=== PATIENT | male | born 1965 | race Caucasian/White ===

== ENCOUNTER → 2024-07-09 06:21 | Day surgery (SDC) | payer OTHER, SELFPAY ==
[2024-07-09 12:09] LABS: Glucose - Point of Care 107 mg/dl (70-99)
== END ==
LOC: GI 06:21
PROVIDERS: ATTENDING PHYSICIAN Internal Medicine Gastroenterology
DX: Z12.11 Encounter for screening for malignant neoplasm of colon (principal); Z86.0100 Personal history of colon polyps, unspecified; K64.8 Other hemorrhoids; D12.2 Benign neoplasm of ascending colon; D12.3 Benign neoplasm of transverse colon; K63.5 Polyp of colon
CPT/HCPCS: 45385; 88305; 82962

== ENCOUNTER 2024-10-21 09:19 | Emergency (ER) | payer SELFPAY ==
[2024-10-21 09:37] VITALS: BP 125/85
--- NOTE | 2024-10-21 09:39 | ED.GENMED ---
ED Provider Triage
<Sarbjit Parish PA-C - Last Filed: 10/21/24 09:39>
-
Patient seen by provider in Triage?: Seen in Triage
Attestation: A medical screening examination has been initiated by a qualified medical provider. Based on the assessment performed at this time, it has been determined that an emergent medical condition may exist and the patient has been informed
that further medical evaluation and possible additional diagnostic testing may be needed.
HPI: 59-year-old male presents for evaluation of left knee pain for the past several days. Denies acute injury. Prior history of surgery, details of which she is not certain. States that he was having difficulty walking on the knee however it is
better today.
GENERAL: Alert , in no apparent distress
EYE: No visual abnormalities.
NECK: Trachea midline
ENT: No visible abnormalities.
LUNGS: No acute respiratory distress
NEUROLOGICAL: Alert and oriented
SKIN: Skin intact. No visible changes.
MUSCULOSKELETAL: Moving extremities normally. Left knee range of motion intact, no joint effusion
PSYCH: Normal and appropriate interaction.
This is a medical evaluation conducted in person to initiate diagnostic evaluation and provide initial therapeutics. Please see further documentation by the treating clinician.
History of Present Illness
<Sarbjit Parish PA-C - Last Filed: 10/21/24 09:39>
General
Chief Complaint: Musculo-Skeletal Complaint
Time Seen by Provider: 10/21/24 10:24
<Roosevelt Sánchez DO - Last Filed: 10/21/24 11:13>
General
Source: patient
Exam Limitations: none
Nursing documentation reviewed up to this point in time: agreed with
History of Present Illness
History of Present Illness:
59-year-old male presents emergency department due to left knee pain that began when he was getting out of a car at work. He has a history of knee pain in the past and had meniscal surgery about 12 years ago. He cannot recall the name of the
surgeon. 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
Past History
<Sarbjit Parish PA-C - Last Filed: 10/21/24 09:39>
Past History
ED Past Medical History: HTN, Hypercholesterolemia and Other (TIA)
ED Past Surgical History: Orthopedic (Right hip repaired age 15)
Social History
Tobacco: Non-smoker
Alcohol: None
Drug: None
Living: with family
Employment: Employed
Review of Systems
<Roosevelt Sánchez, - Last Filed: 10/21/24 11:13>
Review of Systems
Allergies reviewed?: Yes
All Other Systems: Not applicable
Constitutional: Reports no symptoms
EENT: Reports no symptoms
Respiratory: Reports no symptoms
Cardiac: Reports no symptoms
ABD/GI: Reports no symptoms
: Reports no symptoms
Musculoskeletal: Reports joint pain
Skin: Reports no symptoms
Neurological: Reports no symptoms
Endocrine: Reports no symptoms
Hematologic/Lymphatic: Reports no symptoms
Psychiatric: Reports no symptoms
Phy Exam
<Roosevelt Sánchez, - Last Filed: 10/21/24 11:13>
Physical Exam
Physical Exam:
No acute distress
Physical Exam
General: no apparent distress, not acutely ill
Neck: supple. no meningeal signs. normal posterior pharynx
Heart: equal radial pulses.
HEENT: Pupils equal round reactive to light, EOMI
Lungs: no acute respiratory distress. clear bilaterally
Abdomen: Nondistended
Neuro: alert and oriented. no focal neurological deficits cranial nerves II through XII intact
Skin: no rash
Psychiatric: well kept. interactive and cooperative
Extremities: no edema. no calf tenderness. negative homans. good distal pulses mild tenderness to palpation left lateral knee. Full range of motion. Ambulates without difficulty.
Course
<Sarbjit Parish PA-C - Last Filed: 10/21/24 09:39>
Orders/Labs/Results
Orders:
Orders
10/21/24 09:38
CR Knee - Left 4 Or More View* Urgent
Comment:
Reason For Exam: injury
Vital Signs
Initial and Last Documented VS:
Initial Vital Signs
Temp Pulse Resp BP Pulse Ox
98 F 76 16 125/85 97
10/21/24 09:37 10/21/24 09:37 10/21/24 09:37 10/21/24 09:37 10/21/24 09:37
Last Documented Vital Signs
Temp Pulse Resp BP Pulse Ox
98 F 76 16 125/85 97
10/21/24 09:37 10/21/24 09:37 10/21/24 09:37 10/21/24 09:37 10/21/24 09:37
<Roosevelt Sánchez DO - Last Filed: 10/21/24 11:13>
Orders/Labs/Results
Orders:
Orders
10/21/24 09:38
CR Knee - Left 4 Or More View* Urgent
Comment:
Reason For Exam: injury
Vital Signs
Initial and Last Documented VS:
Initial Vital Signs
Temp Pulse Resp BP Pulse Ox
98 F 76 16 125/85 97
10/21/24 09:37 10/21/24 09:37 10/21/24 09:37 10/21/24 09:37 10/21/24 09:37
Last Documented Vital Signs
Temp Pulse Resp BP Pulse Ox
98 F 76 16 125/85 97
10/21/24 09:37 10/21/24 09:37 10/21/24 09:37 10/21/24 09:37 10/21/24 09:37
<Roosevelt Sánchez DO - Last Filed: 10/21/24 11:13>
MDM/Problems Addressed
Differential Diagnosis Includes:
Knee fracture, DVT, tendinitis
MDM/Problems Addressed:
59-year-old male with left knee pain, suspect tendinitis, will have patient follow-up with orthopedics. Return precautions given. Patient ambulates without difficulty.
<Roosevelt Sánchez DO - Last Filed: 10/21/24 11:13>
*Radiology
Radiology exam reviewed: radiology read reviewed (Left knee x-ray no acute findings)
*Pulse Oximetry
Patient hypoxic: no
*Critical Care Note
Total Time (30-74mins, 75-104mins- exclusive of procedures): Not Applicable
<Roosevelt Sánchez DO - Last Filed: 10/21/24 11:13>
Patient Management
Social determinants of health affecting care: Living situation and Strong social support
Escalation/DeEscalation of care consider admission/obs:
Admit not indicated
ED Attending Note
<Sarbjit Parish PA-C - Last Filed: 10/21/24 09:39>
-
Portions of this chart may have been created with voice recognition software.� Occasional wrong word or��sound alike� substitutions may have occurred due to the inherent limitations of voice recognition software.
Discharge Plan
Departure
Patient Disposition: Home (Routine Discharge)
Date of Disposition: 10/21/24
Time of Disposition: 11:08
Patient with high blood pressure during this ER visit?: Yes
Condition: Good
Discharge Problem:
Acute pain of left knee
Instructions: Knee Pain (DC)
Prescriptions:
No Action
sertraline 25 MG tablet
50 mg PO HS
ibuprofen 200 MG tablet
400 mg PO PRN PRN (Reason: pain)
valsartan 40 MG tablet
40 mg PO HS
atorvastatin 20 MG tablet
20 mg PO HS
aspirin 81 MG tablet,delayed release (DR/EC)
81 mg PO DAILYPRN PRN (Reason: when he remembers)
sertraline 50 MG tablet
50 mg PO HS
Referrals:
Roosevelt Covington MD [Family Provider] -
Jeff Manzano MD [Active] - Call in 1-3 days for appt
Interventions
Interventions:
*Risk Screen - Suicide Last Done: 10/21/24 09:39
*Neglect/Abuse Screening Last Done: 10/21/24 09:39
Discharge Date and Time
Print Language: INDONESIAN
== END 2024-10-21 11:36 | disposition home or self-care (01) ==
LOC: EMR 09:19
PROVIDERS: EMERGENCY PHYSICIAN Emergency Medicine; FAMILY PHYSICIAN Family Medicine
DX: M25.562 Pain in left knee (principal); I10 Essential (primary) hypertension; E78.00 Pure hypercholesterolemia, unspecified; Z86.73 Personal history of transient ischemic attack (TIA), and cerebral infarction without residual deficits
CPT/HCPCS: 99283; 73564

== ENCOUNTER 2024-12-30 10:42 | Inpatient (IN) | payer OTHER, SELFPAY ==
[2024-12-28] VITALS (7 sets, daily range): BP systolic 101–155; BP diastolic 65–99
[2024-12-28 16:51] LABS: % Basophils 0.4 % (0-2); % Eosinophils 1.8 % (0-6); % Immature Granulocytes 0.2 % (0-0.5); % Lymphocytes 5.8 % (20.5-51.1); % Monocytes 0.4 % (1.7-9.3); % Neutrophils 91.4 % (42.2-75.2); Absolute Eosinophils 0.1 10^3/uL (0-0.7); Absolute Lymphocytes 0.3 10^3/uL (1.2-3.4); Absolute Neutrophils 4.1 10^3/uL (1.4-6.5); Hematocrit 45.4 % (39.0-52.0); Hemoglobin 15.8 g/dL (13.0-18.0); Mean Corp Hgb Conc. 34.8 g/dL (33.0-37.0); Mean Corpuscular Hgb 30.3 pg (27.0-31.0); Mean Platelet Volume 9.7 fL (7.4-10.4); Nucleated Red Blood Cells % 0 % (-); Platelet Count 163 10^3/uL (130-400); Red Blood Cell Count 5.22 10^6/uL (4.70-6.10); White Blood Cell Count 4.5 10^3/uL (4.8-10.8)
[2024-12-28 17:03] LABS: ALT (SGPT) 166 U/L (0-50); AST (SGOT) 202 U/L (17-59); Albumin 4.3 g/dl (3.5-5.0); Alkaline Phosphatase 60 U/L (38-126); Blood Urea Nitrogen 29 mg/dl (9-20); Calcium 9.6 mg/dl (8.4-10.2); Carbon Dioxide 28 mmol/L (22-30); Chloride 101 mmol/L (98-107); Glucose 185 mg/dl (70-99); Potassium 4.5 mmol/L (3.5-5.1); Sodium 137 mmol/L (135-145); Total Bilirubin 1.9 mg/dl (0.2-1.3); Total Protein 7.2 g/dl (6.3-8.2); eGFR > 60.00
[2024-12-28 17:11] LABS: Troponin I < 0.012 ng/ml
--- NOTE | 2024-12-28 17:11 | ED.GENMED ---
History of Present Illness
General
Chief Complaint: Back Pain
Source: patient
Time Seen by Provider: 12/28/24 16:59
History of Present Illness
History of Present Illness:
This a pleasant 59-year-old male who presents to the emergency department with back pain that radiated to his abdomen. He states that the pain began this morning after drinking coffee. He reports that the pain has been waxing and waning all day.
Shortly after the pain began it stopped. Patient went grocery shopping with his and states that he had no issues. Patient got home and had a return of symptoms. He states that he felt like he had bad gas. He vomited several times. was
concerned because she thought his lips looked blue. Patient started shivering and brought him to the emergency department. Upon arrival, patient states that his symptoms had resolved completely.
Vital signs are stable. Patient not hypoxic
Nursing note reviewed. I agree with nursing documentation up to this point in time.
Home Meds and allergies reviewed.
NUMBER AND COMPLEXITY OF PROBLEMS ADDRESSED AT THE ENCOUNTER
� Chronic conditions affecting care:Chronic back pain with herniated disks., Hypertension, former smoker, diabetic.
� Acute Exacerbation and/or Progression of Chronic Illness:Acute on chronic back pain
� Differential Diagnosis includes: Back pain, PE, dissection, musculoskeletal pain
AMOUNT AND/OR COMPLEXITY OF DATA TO BE REVIEWED AND ANALYZED
I performed an independent evaluation of the following and my interpretation is:
EKG:Sinus tachycardia rate of 101 inverted T waves anterior laterally. This is new when compared to previous EKG dated February 26, 2018.
Pulse Ox: Not Hypoxic 98% on room air. No cyanosis noted
Radio Aerial Installer: Sinus Tachycardia rate of 108
CT:
X-rays:
Ultrasound:
Laboratory Studies:
Other:
Review of other/old records:
Clinical information was obtained by an independent historian:
Prescriptions/Medications Considered but not given:
Further testing considered but not performed:
RISK OF COMPLICATIONS AND/OR MORBIDITY OR MORTALITY OF PATIENT MANAGEMENT
Social determinants of health affecting care: Good Social Support
Discussion with other providers:
Escalation of care including admission/observation vs risk of discharge considered: After being observed in the emergency department, patient is
CRITICAL CARE NOTE:
Total Time (exclusive of procedures):
Update:
Past History
Past History
ED Past Medical History: HTN, Hypercholesterolemia and Other (TIA)
ED Past Surgical History: Orthopedic (Right hip repaired age 15)
Social History
Tobacco: Non-smoker
Alcohol: None
Drug: None
Living: with family
Employment: Employed
Review of Systems
Review of Systems
Allergies reviewed?: Yes
Other source history: family ( is present at the bedside)
All Other Systems: ROS reviewed and negative except as documented in HPI and ROS
Constitutional: Reports no symptoms
EENT: Reports no symptoms
Respiratory: Reports no symptoms
Cardiac: Reports no symptoms
ABD/GI: Reports abdominal pain, nausea and vomiting; Denies diarrhea, constipated, bloody stools, black stools or anorexia
: Reports no symptoms
Musculoskeletal: Reports no symptoms
Skin: Reports no symptoms
Neurological: Reports no symptoms
Endocrine: Reports no symptoms
Hematologic/Lymphatic: Reports no symptoms
Psychiatric: Reports no symptoms
Phy Exam
General Physical Exam
General Presentation: well appearing and no apparent distress
General Skin: warm and dry
General Habitus: normal
General Mental: alert
General Hydration: appears well hydrated
ENT Exam
ENT Exam: EOMI, pharynx normal, neck supple and normocephalic
Eye Exam
Eye Exam: PERRL, cornea clear and conjunctiva normal
Cardiovascular Exam
Cardiovascular Exam: regular rate/rhythm, no edema, no murmur and normal peripheral pulses
Pulmonary Exam
Pulmonary Exam: lungs clear, no respiratory distress, no rales, no crackles, no rhonchi, no stridor, no wheezing and no cough
Gastrointestinal Exam
Gastrointestinal Exam: normal bowel sounds, non tender, soft, no organomegaly, no pulsatile mass and non distended
Neurological Exam
Neurological Exam: alert, oriented x3, no motor deficits and speech normal
Musculoskeletal Exam
Musculoskeletal Exam: full ROM and no edema
Skin Exam
Skin Exam: normal color, warm/dry, no rash and no petechia
Psychiatric Exam
Psychiatric Exam: normal mood/affect
Course
Orders/Labs/Results
Orders:
Orders
12/28/24 16:31
Electrocardiogram (*1) Urgent
Reason for Study: Abdominal Pain
EKG- Treatment ONCE
12/28/24 16:36
Complete Blood Count/With Diff Urgent
Comprehensive Metabolic Panel Urgent
Lipase Urgent
Troponin I Urgent
12/28/24 17:10
0.9% Sodium Chloride 1000 ml [Nss] 1,000 ml IV BOLUS
12/28/24 17:11
Add On- LAB Urgent
Tests Added?: ddimer
12/28/24 17:21
D-Dimer Urgent
12/28/24 17:40
CT Abd/pelvis W Iv Cont Urgent
Comment:
Reason For Exam: upper abd pain
12/28/24 21:17
US Abdomen Limited Urgent
Reason For Exam: upper abd pain
12/28/24 22:40
Electrocardiogram (*1) Urgent
Reason for Study: Abdominal Pain
EKG- Treatment ONCE
12/28/24 22:47
Comprehensive Metabolic Panel Urgent
Lipase Urgent
Comment: ADD ON
Troponin I Urgent
12/28/24 23:42
Add On- LAB Urgent
Tests Added?: lipase
Abnormal Lab Results
12/28/24 12/28/24
16:36 22:47
WBC 4.5 L 10^3/uL
(4.8-10.8)
Absolute Lymphs (auto) 0.3 L 10^3/uL
(1.2-3.4)
Absolute Monos (auto) 0.0 L 10^3/uL
(0.1-0.6)
Neutrophils % 91.4 H %
(42.2-75.2)
Lymphocytes % 5.8 L %
(20.5-51.1)
Monocytes % 0.4 L %
(1.7-9.3)
BUN 29 H mg/dl 27 H mg/dl
(9-20) (9-20)
Glucose 185 H mg/dl 149 H mg/dl
(70-99) (70-99)
Total Bilirubin 1.9 H mg/dl 3.3 H D mg/dl
(0.2-1.3) (0.2-1.3)
AST 202 H U/L 307 H U/L
(17-59) (17-59)
ALT 166 H U/L 284 H U/L
(0-50) (0-50)
Total Protein 6.1 L g/dl
(6.3-8.2)
Lipase 1962 H* U/L
(23-300)
12/28/24 16:36
12/28/24 22:47
Vital Signs
Initial and Last Documented VS:
Initial Vital Signs
Temp Pulse Resp BP Pulse Ox
98.3 F 117 16 155/99 98
12/28/24 16:26 12/28/24 16:26 12/28/24 16:26 12/28/24 16:26 12/28/24 16:26
Last Documented Vital Signs
Temp Pulse Resp BP Pulse Ox
98.3 F 95 13 101/65 95
12/28/24 16:26 12/28/24 22:21 12/28/24 22:21 12/28/24 22:21 12/28/24 22:21
*Radiology
Radiology exam reviewed: radiology read reviewed
*Pulse Oximetry
Patient hypoxic: no
*EKG
Interpreted by ED Provider?: Yes
EKG Intrepretation Date: 12/28/24
Interpretation: normal
Heart Rate: 93
Rate: normal
Rhythm: sinus
Virden: normal axis
Interval: normal interval
QRS Pattern: normal QRS
Ischemia: no ischemia
*Radio Aerial Installer Interpretation
Rate: normal
Interpretation: normal
Heart Rate: 79
Rhythm: sinus
*Critical Care Note
Total Time (30-74mins, 75-104mins- exclusive of procedures): Not Applicable
Update Note
Update Note:
Patient's transaminases including T. bili AST and ALT are rising despite relatively normal CT scan and ultrasound. Patient is still pain-free and not nauseated. Concerns for a stone in the CBD. Further testing necessary. Patient will be admitted
to the hospitalist service.
ED Attending Note
-
Portions of this chart may have been created with voice recognition software.� Occasional wrong word or��sound alike� substitutions may have occurred due to the inherent limitations of voice recognition software.
Discharge Plan
Departure
Patient Disposition: Admit
Date of Disposition: 12/28/24
Time of Disposition: 23:48
Admit to: Telemetry
Presentation/result/management discussed w/ accepting MD/DO: Hospitalist
Discharge Problem:
Abdominal pain, Elevated transaminase level, Total bilirubin, elevated
Prescriptions:
No Action
ibuprofen 200 MG tablet
800 mg PO Q6HPRN PRN (Reason: mild pain)
valsartan 40 MG tablet
40 mg PO DAILY
sertraline 100 mg Tablet
100 mg PO HS
metformin 500 mg Tablet Extended Release 24 Hr
1,000 mg PO BID
Referrals:
Roosevelt Covington MD [Family Provider] -
Interventions
Interventions:
*Risk Screen - Suicide Last Done: 12/28/24 16:26
*General Assessment Last Done: 12/28/24 16:26
*Neglect/Abuse Screening Last Done: 12/28/24 17:24
*ED- Fall Risk Assessment Last Done: 12/28/24 17:24
*ED COVID-19 Vaccine History Last Done: 12/28/24 17:24
ED-Musculoskeletal Assessment Last Done: 12/28/24 17:24
Discharge Date and Time
Print Language: JAPANESE
[2024-12-28 17:17] LABS: Lipase 1962 U/L (23-300)
[2024-12-28] MEDS: NSS 1000 IV (17:20)
[2024-12-28 18:03] LABS: D-Dimer 0.49 ug/mlFEU (0.00-0.50)
[2024-12-28 23:10] LABS: AST (SGOT) 307 U/L (17-59); Albumin 3.7 g/dl (3.5-5.0); Blood Urea Nitrogen 27 mg/dl (9-20); Calcium 9.1 mg/dl (8.4-10.2); Carbon Dioxide 24 mmol/L (22-30); Chloride 104 mmol/L (98-107); Glucose 149 mg/dl (70-99); Potassium 4.2 mmol/L (3.5-5.1); Sodium 137 mmol/L (135-145); Total Bilirubin 3.3 mg/dl (0.2-1.3)
[2024-12-28 23:19] LABS: Troponin I < 0.012 ng/ml
[2024-12-28 23:27] LABS: ALT (SGPT) 284 U/L (0-50); Alkaline Phosphatase 54 U/L (38-126); Total Protein 6.1 g/dl (6.3-8.2); eGFR > 60.00
[2024-12-29] VITALS: BP 125/81
[2024-12-29 00:02] LABS: Lipase 575 U/L (23-300)
--- NOTE | 2024-12-29 00:33 | HPS.HSE ---
Family Physician
-
Family Physician: Roosevelt Covington
Chief Complaint
-
Back pain
History of Present Illness
This is a 59-year-old past medical history significant for hypertension, diabetes who presents to the emergency department with episode of back pain that started this afternoon.
Patient reports episode of back pain that appears to be behind his scapula and radiates to his abdomen. He feels a squeezing sensation on his back and abdomen. Then he developed and nausea he had 1 episode of vomiting and then shaking chills and
rigors. This shaking chills and rigors was associated with the blue lips and loss of color in his face so decided come to the emergency department.
Patient had no prior episodes of chest pain. He denies any alcohol use. Denies history of gallstones. He denies any urinary symptoms. He denies any cough fevers or chills. He denies chest pain with inspiration.
In the emergency department he was afebrile, blood pressure was 125/81 with a pulse of 95% on room air. ECG shows normal sinus rhythm rate of 93, troponin was negative, CBC was unremarkable. Electrolytes BUN/creatinine were normal. He had
elevated total bilirubin that was 3.3, AST 307 ALT 284 and lipase 1900. D-dimer was negative.
He had a CT scan of the abdomen pelvis which showed cholelithiasis, no choledocholithiasis, no biliary ductal dilatation, and no peripancreatic fluid or necrosis. Patient had an ultrasound which was negative for Carey sign. Also shows no ductal
dilation and no ductal stone but had gallstones.
Medical History
Past Medical History
Past Medical History: Reports CVA (TIA), GERD, HTN and NIDDM
Past Surgical History: Reports Other
Social History
Tobacco: Non-smoker
Alcohol: None
Drug: None
Personal:
Living: With Family
Employment: Employed
Family History
Family History: Not pertinent
Allergies / Home Medications
Allergies reflects when Allergies were last updated in [facility].
Home Medications with original date entered in [facility]
Allergy/Medication List:
Allergies
Allergy/AdvReac Type Severity Reaction Status Date / Time
No Known Allergies Allergy Verified 12/28/24 16:30
Home Medications
ibuprofen 200 mg tablet 800 mg PO Q6HPRN PRN mild pain 02/26/18
valsartan 40 mg tablet 40 mg PO DAILY 02/26/18
metformin 500 mg tablet,extended release 24 hr 1,000 mg PO BID 12/28/24
sertraline 100 mg tablet 100 mg PO HS 12/28/24
Review of Systems
-
Constitutional: Reports No Symptoms
EENT: Reports No Symptoms
Respiratory: Reports No Symptoms
Cardiac: Reports No Symptoms
Abdomen/GI: Reports Abdominal Pain (back pain at the epigastric region radiating to the abdomen) and Nausea
: Reports No Symptoms
Musculoskeletal: Reports No Symptoms
Skin: Reports No Symptoms
Neurological: Reports No Symptoms
Endocrine: Reports No Symptoms
Hematologic/Lymphatic: Reports No Symptoms
Psych: Reports No Symptoms
Physical Exam
Vital Signs
Vital Signs
Temp Pulse Resp BP Pulse Ox
98.3 F 94 16 125/81 93
12/28/24 16:26 12/29/24 00:00 12/29/24 00:00 12/29/24 00:00 12/29/24 00:00
Physical Exam
General: Well Developed, Well Nourished, No Apparent Distress and Comfortable
HEENT: NormoCephalic, Anicteric, Moist mucous membranes and Atraumatic
Respiratory: Clear
Cardiac: S1/S2 and Regular Rhythm
Breast: Deferred by me
GI: Soft, Non Distended, Normal Bowel Sounds and Tender
Rectal: Deferred by Provider
Genito-urinary: Deferred by me
Musculoskeletal: No Clubbing, No Cyanosis and No Edema
Skin: Warm
Neuro: AO x 3 and Nonfocal/grossly intact
Hematologic/Lymphatic: No Lymphadenopathy
Psych: Calm
Laboratory Results
-
12/28/24 16:36
12/28/24 22:47
Laboratory Results
Total Bilirubin 3.3 mg/dl (0.2-1.3) H D 12/28/24 22:47
AST 307 U/L (17-59) H 12/28/24 22:47
ALT 284 U/L (0-50) H 12/28/24 22:47
Alkaline Phosphatase 54 U/L (38-126) 12/28/24 22:47
Troponin I < 0.012 ng/ml 12/28/24 22:47
Lipase 575 U/L (23-300) H 12/28/24 22:47
Impression/Plan
-
IMPRESSION:
59-year-old male with past medical history of hypertension and diabetes coming with abdominal pain and found to have gallstones and pancreatitis. Significant lipase elevation to over 1000. Moderate elevations in AST and ALT as well as total
bilirubin consistent with cholestatic picture. Overall picture is consistent with gallstone pancreatitis. He is afebrile, hemodynamically stable with normal WBCs. No current signs of biliary obstruction on imaging. No evidence of acute
cholecystitis.
PLAN:
1. Gall stone pancreatitis - LFTs still rising 8 hours after presentation but currently has no pain, nausea or vomiting.
- admit to med/surg obs
- trend lfts
- npo for now, IVfluids and pain control
- ADAT
- mrcp in am
- no signs of acute shelley, held of surgical consult
- since getting mrcp, have consulted GI
2. DM II
- hold metformin
- sliding scale insulin
3. HTN
- continue valsartan
DVT PPX - lovenox sq
Code status - full code
[2024-12-29] MEDS: TYLENOL 650 MG PO ×2 (01:54→16:08)
[2024-12-29 02:35] VITALS: BMI 27.3
[2024-12-29 02:36] VITALS: BP 112/71
[2024-12-29] MEDS: LR 1000 IV ×3 (02:49→19:20)
[2024-12-29 06:24] LABS: Glucose - Point of Care 136 mg/dl (70-99)
[2024-12-29 07:31] LABS: Hematocrit 43.2 % (39.0-52.0); Mean Corp Hgb Conc. 34.7 g/dL (33.0-37.0); Mean Corpuscular Hgb 29.9 pg (27.0-31.0); Mean Corpuscular Volume 86.1 fL (80.0-94.0); Platelet Count 164 10^3/uL (130-400); Red Blood Cell Count 5.02 10^6/uL (4.70-6.10); Red Cell Dist. Width 12.6 % (11.5-14.5); White Blood Cell Count 9.7 10^3/uL (4.8-10.8)
[2024-12-29 07:40] VITALS: BP 134/85
[2024-12-29 07:42] LABS: Glucose - Point of Care 153 mg/dl (70-99)
[2024-12-29] MEDS: DIOVAN 40 MG PO (07:55)
[2024-12-29 08:36] LABS: ALT (SGPT) 403 U/L (0-50); AST (SGOT) 316 U/L (17-59); Albumin 4.4 g/dl (3.5-5.0); Alkaline Phosphatase 69 U/L (38-126); Blood Urea Nitrogen 22 mg/dl (9-20); Carbon Dioxide 22 mmol/L (22-30); Chloride 103 mmol/L (98-107); Direct Bilirubin 3.9 mg/dl (0.0-0.4); Estimated Creatinine Clearance 110 ml/min; Glucose 140 mg/dl (70-99); Magnesium 1.6 mg/dl (1.6-2.3); Potassium 4.4 mmol/L (3.5-5.1); Sodium 138 mmol/L (135-145); Total Bilirubin 5.4 mg/dl (0.2-1.3); Total Protein 6.9 g/dl (6.3-8.2); eGFR > 60.00
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
[2024-12-29] MEDS: ZOSYN 50 IV ×3 (10:08→21:48)
--- NOTE | 2024-12-29 10:17 | W.PN.UPDATE ---
Update Note
Progress Note Update
Nonbillable note
Acute jaundice/transaminitis - worsening obstructive jaundice. Liver abd us showing cholelithiasis. no CBD dilation. MRI/MRCP ordered for today. maintain on empiric zosyn. GI following and help appreciated.
Elevated lipase - lipase in ~ 500 range. no significant pain/imaging did not show inflammation on pancreas. continue monitor. likely choledocholithiasis related.
--- NOTE | 2024-12-29 12:31 | CM ---
Patient seen at bedside. patient states that he lives with his in a 2 story home with no DME other than a CPAP that he does not use consistently. Patient PCP is Dr. Covington and he uses the [facility] for medications. Patient does not
anticipate any needs at discharge. CM will continue to follow for discharge planning needs.
Plan; home with no needs vs home with VN pending medical treatment plan
[2024-12-29 12:40] LABS: Glucose - Point of Care 114 mg/dl (70-99)
[2024-12-29 15:55] VITALS: BP 150/91
--- NOTE | 2024-12-29 17:31 | W.PN.UPDATE ---
Update Note
Progress Note Update
MRI reviewed with patient. No choledocholithiasis but some progressed GBWT. Will get surgical eval. ok for clears then NPO in AM til surgical eval.
[2024-12-29 18:02] LABS: Glucose - Point of Care 129 mg/dl (70-99)
[2024-12-29] MEDS: ZOLOFT 100 MG PO (21:48)
[2024-12-29 23:20] VITALS: BP 114/58
[2024-12-29 23:36] LABS: Glucose - Point of Care 110 mg/dl (70-99)
[2024-12-30] VITALS (12 sets, daily range): BP systolic 112–162; BP diastolic 66–90
[2024-12-30] MEDS: LR 1000 IV ×2 (01:01→08:24)
[2024-12-30] MEDS: ZOSYN 50 IV ×3 (03:32→21:39)
[2024-12-30 05:56] LABS: Glucose - Point of Care 138 mg/dl (70-99)
[2024-12-30 07:12] LABS: INR 1.05
[2024-12-30 07:28] LABS: Hematocrit 38.3 % (39.0-52.0); Hemoglobin 13.4 g/dL (13.0-18.0); Mean Corpuscular Hgb 30.3 pg (27.0-31.0); Mean Corpuscular Volume 86.7 fL (80.0-94.0); Red Blood Cell Count 4.42 10^6/uL (4.70-6.10); Red Cell Dist. Width 12.6 % (11.5-14.5)
[2024-12-30 07:58] LABS: Mean Platelet Volume 10.2 fL (7.4-10.4); Platelet Count 126 10^3/uL (130-400)
[2024-12-30] MEDS: DIOVAN 40 MG PO (08:22)
[2024-12-30 09:35] LABS: ALT (SGPT) 296 U/L (0-50); AST (SGOT) 145 U/L (17-59); Albumin 3.8 g/dl (3.5-5.0); Alkaline Phosphatase 71 U/L (38-126); Blood Urea Nitrogen 14 mg/dl (9-20); Calcium 9.1 mg/dl (8.4-10.2); Carbon Dioxide 19 mmol/L (22-30); Chloride 107 mmol/L (98-107); Estimated Creatinine Clearance 110 ml/min; Glucose 141 mg/dl (70-99); Potassium 4.2 mmol/L (3.5-5.1); Sodium 138 mmol/L (135-145); Total Bilirubin 4.8 mg/dl (0.2-1.3); Total Protein 6.2 g/dl (6.3-8.2); eGFR > 60.00
[2024-12-30 11:21] LABS: Glucose - Point of Care 134 mg/dl (70-99)
--- NOTE | 2024-12-30 12:15 | W.PN.HOSP.TC ---
Today's Communication/Plan
-
Likely for OR today per general surgery
Continue other care
Assessment / Plan
Assessment / Plan
1. Cholelithiasis
Hyperbilirubinemia -direct dominant
Acute transaminitis
- MRI MRCP did not show any choledocholithiasis
- Patient evaluated by general surgery, maybe patient passed a small stone ?
- Patient is planned to get elective cholecystectomy by general surgery
- Maintain on clear liquid diet/symptomatic care
- Maintain on empiric IV antibiotic Zosyn
2. Elevated Lipase
- Possibly due to passed gallstone situation
- Currently no abdominal pain/nausea/vomiting, continue monitoring
3. Type II DM
- maintain on ISS
4. Essential HTN
- continue on valsartan
5. Depression/anxiety
- Maintain on zoloft 100mg/d
DVT PPX - scd
Full code
Anticipated Discharge: Within 24 hours
Subjective/Interval History
-
Date of Service: December 30, 2024
Patient resting comfortably in chair
denies any abdominal pain/nausea/vomiting overnight
No other problems
Objective Data
-
Labs:
Laboratory Results
12/30/24
06:24
WBC 5.0
Hgb 13.4
Hct 38.3 L
Plt Count 126 L D
PT 14.0
INR 1.05
Sodium 138
Potassium 4.2
Chloride 107
Carbon Dioxide 19 L
BUN 14
Creatinine 0.9
Glucose 141 H
Calcium 9.1
Total Bilirubin 4.8 H
AST 145 H
ALT 296 H
Alkaline Phosphatase 71
Vital Signs:
Vital Signs
Temp Pulse Resp BP Pulse Ox
98.4 F 68 16 127/81 96
12/30/24 07:25 12/30/24 07:25 12/30/24 07:25 12/30/24 07:25 12/30/24 08:12
I&O
12/29/24 12/30/24 12/31/24
06:59 06:59 06:59
Intake Total 720 / 720 2400 / 2400
Balance 720 / 720 2400 / 2400
Review of Systems
-
Respiratory: Reports No Symptoms
Cardiac: Reports No Symptoms
Abdomen/GI: Reports No Symptoms
Physical Exam
-
General: No Apparent Distress and Comfortable
HEENT: Negative Oxygen
Respiratory: Clear to Auscultation
Cardiac: Regular Rhythm and S1/S2; Negative Murmur or Rub
GI: Soft, Nontender and Nondistended
Musculoskeletal: No Edema
Neuro: Awake, Alert, Oriented, No Motor Deficits and Nonfocal/Grossly Intact
Psych: Calm
--- NOTE | 2024-12-30 12:51 | CON.GS ---
Consultation
-
Date/Time Consultation Performed: 12/30/24
Requesting Provider: Sridevi
Performing Provider: Gunner
Reason for Consultation: Biliary pancreatitis
Medical History
-
Chief Complaint: Abd pain
History of Present Illness:
59M with acute onset abd pain that began yesterday afternoon. Described as mid back pain betwen the shoulder blades with radiation to his abdomen. Described as squeezing pain and a/w n/v and chills. Denies changes to stool/urine. Never had similar
pain before. Today his pain is almost totally resolved.
Past Medical History
Past Medical History: Other (CVA (TIA), GERD, HTN and NIDDM)
Past Surgical History: Reviewed & Noncontributory
Social History
Tobacco: Non-Smoker
Alcohol: Occasional
Personal:
Employment: Employed
Allergies / Home Medications
Allergy/AdvReac Type Severity Reaction Status Date / Time
No Known Allergies Allergy Verified 12/28/24 16:30
�Medication �Instructions �Recorded �Confirmed �Type
ibuprofen 200 mg tablet 800 mg PO Q6HPRN PRN mild pain 02/26/18 12/28/24 History
valsartan 40 mg tablet 40 mg PO DAILY Blood Pressure 02/26/18 12/28/24 History
metformin 500 mg tablet,extended 1,000 mg PO BID Diabetes 12/28/24 12/28/24 History
release 24 hr
sertraline 100 mg tablet 100 mg PO HS Mental Health/Anxiety 12/28/24 12/28/24 History
Review of Systems
-
A 10 point review of systems was completed, and was negative except as per HPI.
Physical Exam
Vital Signs
Temp Pulse Resp BP Pulse Ox
98.4 F 68 16 127/81 96
12/30/24 07:25 12/30/24 07:25 12/30/24 07:25 12/30/24 07:12/30/24 08:12
12/29/24 12/30/24 12/31/24
06:59 06:59 06:59
Actual Weight 101.786 kg
Body Mass Index (BMI) 27.3
Lab Results
12/30/24 06:24
12/30/24 06:24
WBC 5.0 10^3/uL (4.8-10.8) 12/30/24 06:24
Hgb 13.4 g/dL (13.0-18.0) 12/30/24 06:24
Hct 38.3 % (39.0-52.0) L 12/30/24 06:24
Plt Count 126 10^3/uL (130-400) L D 12/30/24 06:24
Abs Immat Gran (auto) 0.0 10^3/uL (0-0.05) 12/28/24 16:36
Neutrophils % 91.4 % (42.2-75.2) H 12/28/24 16:36
Physical Exam
General: Well Developed, Well Nourished and No Apparent Distress
HEENT: Normocephalic and Anicteric
GI: Soft, Non Tender and Non Distended
Skin: Warm and Dry
Neuro: AO x 3
Psych: Calm
Data Reviewed
-
CT Scan: Image Personally Visualized and interpreted, Report Reviewed by me, Discussed with Patient and Discussed with Family
Ultrasound: Image Personally Visualized and interpreted, Report Reviewed by me, Discussed with Patient and Discussed with Family
MRI: Image Personally Visualized and interpreted, Report Reviewed by me, Discussed with Patient and Discussed with Family
Labs: Labs Reviewed by me
Assessment / Plan
-
59M with biliary pancreatitis
Pancreatitis clinically resolved
MRI negative for choledocholithiasis
LFTs elevated, trending down
Imaging confirms gallstones
Plan:
OCTOR for rCCY with cholangiogram
D/w pt and , informed consent obtained. Procedure and expected recovery discussed. All ?s answered.
--- NOTE | 2024-12-30 13:20 | W.PN.GI.CBS2 ---
Addendum entered and electronically signed by Onesimo Agustin MD 12/31/24 07:46:
IOC- negative .
will recommend follow surgical recommendations . will s/o. call us back if any ?
Original Note:
Today's Communication / Plan
-
Patient is scheduled for cholecystectomy with IOC today
Assessment / Plan
-
Pt is a 59yo with hx TA colon polyp, prior TIA, NIDDM, GERD, HTN, PTSD, with onset of back pain between shoulder blades with radiation to abdomen. On admission noted with stable CBC but chemistry with noted bili 3.3 AST 307, ALT 284, alk phos 54
and lipase 575 with further rise after admission. Imaging on admission with US- limited noted cholelithiasis without acute cholecystitis CBD not well visualized. mild HM with hepatic steatosis. CT with cholelithiasis without acute
cholecystitis, hepatic steatosis, bile duct and pancreas normal. MRI is pending. In review with patient he admits to occasional back/epigastric pain about 1 episode per month for last years. He began with pain that become severe with shaking
chills. He admits to about 1-2 drinks of ETOH per month. No new med or dose changes. No recent GPL1 use. He does admit to increased Advil use with about 4 tabs daily for headaches and joint pains.
- Abd pain
Suspect gallstone pancreatitis with possible choledocholithiasis. MRI/MRCP 12/29 -negative for choledocholithiasis. Possible passed stone
- Chills. Blood culture negative.
- Elevated LFTs
- DM
- HTN
- Prior TIA
- PTSD
- H/o colonic polyps
Recommendations
Patient is scheduled to have cholecystectomy today with IOC.
If IOC positive will perform ERCP tomorrow
Continue to trend LFT
Diet as per surgery
Total Time Spent with Patient (in minutes): 35
Subjective
Subjective
Date of Service: December 30, 2024
Denies any abdominal pain/nausea/vomiting. Awaiting cholecystectomy today
Objective
Data Reviewed
Laboratory Data:
Laboratory Results
12/30/24 06:24
12/30/24 06:24
Laboratory Results
PT 14.0 Sec (11.4-14.6) 12/30/24 06:24
INR 1.05 12/30/24 06:24
Magnesium 1.6 mg/dl (1.6-2.3) 12/29/24 06:33
Total Bilirubin 4.8 mg/dl (0.2-1.3) H 12/30/24 06:24
AST 145 U/L (17-59) H 12/30/24 06:24
ALT 296 U/L (0-50) H 12/30/24 06:24
Alkaline Phosphatase 71 U/L (38-126) 12/30/24 06:24
Lipase 575 U/L (23-300) H 12/28/24 22:47
Vital Signs and I&O:
Vital Signs
Temp Pulse Resp BP Pulse Ox
98.4 F 68 16 127/81 96
12/30/24 07:25 12/30/24 07:25 12/30/24 07:25 12/30/24 07:25 12/30/24 08:12
I&O
12/29/24 12/30/24 12/31/24
06:59 06:59 06:59
Intake Total 720 / 720 2400 / 2400
Balance 720 / 720 2400 / 2400
Physical Exam
Physical Exam
GI: Soft, Non Distended and Non Tender
--- NOTE | 2024-12-30 16:46 | W.IMMPOSTOP ---
Surgical Immed Post Op Note
-
Primary Surgeon: Gunner
Assisting: Capri TRACEY
Pre-op Diagnosis: Biliary pancreatitis
Post-op Diagnosis: Acute calculous suppurative cholecystitis
Procedure Performed: Robot assisted laparoscopic cholecystectomy with chlangiogram
Anesthesia Type: GETA
Specimen / Cultures: Gallbladder
Estimated Blood Loss: 25cc
Complications: None immediate
Operative Findings: Tensely distended hydropic gallbladder with yellow pus drainage, cholangiogram without filling defects, good opacification of biliary tree and duodenum
--- NOTE | 2024-12-30 16:50 | OR.RPT ---
Operative Report
Operative Report
Primary Surgeon: Gunner
Assisting: Capri TRACEY
Pre-op Diagnosis: Biliary pancreatitis
Post-op Diagnosis: Acute calculous suppurative cholecystitis
Procedure Performed: Robot assisted laparoscopic cholecystectomy with chlangiogram
Anesthesia Type: GETA
Specimen / Cultures: Gallbladder
Estimated Blood Loss: 25cc
Complications: None immediate
Operative Findings: Tensely distended hydropic gallbladder with yellow pus drainage, cholangiogram without filling defects, good opacification of biliary tree and duodenum
Date of Surgery:� 12/30/24
Indications: This 59F developed biliary pancreatitis. Lab work showed elevated liver enzymes. Laparoscopic cholecystectomy with robotic assist with cholangiogram was elected.
Description of procedure: The patient was placed on the operating table in the supine position. General anesthesia was induced. A time-out was completed verifying correct patient, procedure, site, positioning, and special equipment prior to
beginning this procedure. An orogastric tube was placed. The abdomen was prepped and draped in the usual sterile fashion. A stab incision was made in left upper quadrant and the Veress needle was inserted. Proper position was confirmed by aspiration
and saline meniscus test. The abdomen was insufflated with carbon dioxide to a pressure of 12mmHg. The patient tolerated insufflation well.
A 8mm trocar was then inserted above the umbilicus. The laparoscope was inserted and the abdomen inspected. No injuries from initial trocar placement or Veress needle insertion were noted. Additional 8mm trocars were then inserted in the following
locations: two in the right lower quadrant and to the left of the umbilicus and just above. The table was placed in the reverse Trendelenburg position with the right side up. The abdomen was inspected and no abnormalities were found. Filmy omental
adhesions to the gallbladder were taken down with electrocautery. The gallbladder was notably distended and hydropic. Upon grasing the fundus purulent exudate was visualized. The dome of the gallbladder was grasped with an atraumatic grasper and
retracted over the dome of the liver. The infundibulum was then grasped with an atraumatic grasper and retracted toward the right lower quadrant. This maneuver exposed Calot�s triangle. The peritoneum overlying the gallbladder infundibulum was then
incised and the cystic duct and cystic artery identified and circumferentially dissected so that a clear view of the liver was achieved through a window between the cystic duct an cystic artery. At this time, the only two structures going into the
gallbladder were the cystic artery and cystic duct.
A gosia was made in the cystic duct and a cholangiogram catheter was passed through a gosia in the abdominal wall and threaded into the cystic duct and secured with a 2-0 silk tie. A cholangiogram was obtained that showed good opacification of the
biliary system and duodenum without filing defects. Some bubbles were noted in the final moments of the fluoroscopy. The catheter was withdrawn.
The cystic duct was then doubly clipped and divided. The cystic artery was controlled with bipolar and divided. The gallbladder was then dissected from its peritoneal attachments by electrocautery. The gallbladder was removed using an endoscopic
retrieval bag placed through the umbilical port. The gallbladder was passed off the table as a specimen. The gallbladder fossa was then thoroughly irrigated with warm sterile saline until effluent ran clear. There was no evidence of bleeding from
the gallbladder fossa or cystic artery or leakage of the bile from the cystic duct stump. The umbilical trocar site was closed at the fascial level with 2-0 PDS. Secondary trocars were removed under direct vision and noted to be hemostatic. The
abdomen was allowed to collapse. The skin was closed with subcuticular sutures of 4-0 monocryl and topical skin adhesive. The orogastric tube was removed.
The patient tolerated the procedure well and was taken to the postanesthesia care unit in stable condition.
The assistance of Capri TRACEY was required due to the complexity of the procedure. During the procedure she assisted with retraction, resection, and closure of the wound.
[2024-12-30 17:05] LABS: Glucose - Point of Care 115 mg/dl (70-99)
[2024-12-30] MEDS: SUBLIMAZE 50 MCG IV ×2 (17:21→17:32)
[2024-12-30] MEDS: ZOSYN IV (17:43)
[2024-12-30] MEDS: ROXICODONE 5 MG PO (20:32)
[2024-12-30] MEDS: MYLICON 80 MG PO (20:52)
[2024-12-30] MEDS: ZOLOFT 100 MG PO (21:39)
[2024-12-30 21:46] LABS: Glucose - Point of Care 206 mg/dl (70-99)
[2024-12-31 03:50] VITALS: BP 125/76
[2024-12-31] MEDS: ROXICODONE 5 MG PO (03:57)
[2024-12-31] MEDS: ZOSYN 50 IV ×2 (03:58→10:00)
[2024-12-31] MEDS: TORADOL 15 MG IV ×2 (04:46→11:00)
[2024-12-31 07:34] LABS: ALT (SGPT) 251 U/L (0-50); AST (SGOT) 119 U/L (17-59); Albumin 3.5 g/dl (3.5-5.0); Alkaline Phosphatase 68 U/L (38-126); Blood Urea Nitrogen 19 mg/dl (9-20); Calcium 8.4 mg/dl (8.4-10.2); Carbon Dioxide 24 mmol/L (22-30); Chloride 102 mmol/L (98-107); Estimated Creatinine Clearance 90 ml/min; Glucose 197 mg/dl (70-99); Potassium 3.9 mmol/L (3.5-5.1); Sodium 136 mmol/L (135-145); Total Bilirubin 3.1 mg/dl (0.2-1.3); eGFR > 60.00
[2024-12-31 07:44] LABS: Glucose - Point of Care 174 mg/dl (70-99)
[2024-12-31 07:45] VITALS: BP 106/75
--- NOTE | 2024-12-31 08:16 | W.PN.GS2 ---
Addendum entered and electronically signed by Shiv Martino MD 12/31/24 11:34:
I saw and examined the patient.
The resident's note was reviewed and I agree with the note with the following additions/corrections.
Comment: AFVSS, pain controlled, iam reg diet, ambulating, LFTs improving, ab exam approp, incisions cdi. OK for DC home with 7 days augmentin.
Original Note:
Today's Communication / Plan
-
-discharge with 7 days Augmentin
Assessment / Plan
-
59 y/o male presenting with acute calculous suppurative cholecystitis s/p rCCY POD#1 shown to have acute calculous suppurative cholecystitis.
AFVSS
Plan:
--Regular diet - tolerating well
--LFTs downtrending
--Pain controled
--discharge today with 7 days Augmentin
--Recommend f/u in 2-4 weeks in outpatient setting
Subjective Data
-
Date of Service: December 31, 2024
Feeling well. No nausea or vomiting overnight. Some pain in RLQ and around surgical incisions, but otherwise well.
Objective Data
-
Intake and Output
12/30/24 12/31/24 01/01/25
06:59 06:59 06:59
Intake Total 2400 / 2400 410 / 410
Balance 2400 / 2400 410 / 410
Intake:
Oral fluids 600 / 600 260 / 260
IV fluids (Total) 1800 / 1800 150 / 150
normosol 150 / 150
IV piggybacks 0 / 0
Other:
Number of approximated MODERATE 2 1
amounts of urine
Vital Signs
Temp Pulse Resp BP Pulse Ox
99.5 F 96 18 125/76 92
12/31/24 03:50 12/31/24 04:36 12/31/24 03:50 12/31/24 03:50 12/31/24 03:50
Lab Results
12/30/24 06:24
12/31/24 06:34
Calcium 8.4 mg/dl (8.4-10.2) 12/31/24 06:34
Magnesium 1.6 mg/dl (1.6-2.3) 12/29/24 06:33
Total Bilirubin 3.1 mg/dl (0.2-1.3) H 12/31/24 06:34
Direct Bilirubin 3.9 mg/dl (0.0-0.4) H 12/29/24 06:33
AST 119 U/L (17-59) H 12/31/24 06:34
ALT 251 U/L (0-50) H 12/31/24 06:34
Alkaline Phosphatase 68 U/L (38-126) 12/31/24 06:34
Total Protein 6.0 g/dl (6.3-8.2) L 12/31/24 06:34
Albumin 3.5 g/dl (3.5-5.0) 12/31/24 06:34
Physical Exam
-
NAD
Soft, non-tympanic, tender in RUQ and RLQ and around surgical sites, but improving from prior.
[2024-12-31] MEDS: NOVOLOG FLEXPEN-LOW RESISTANCE 1 UNITS SC (08:51)
[2024-12-31 11:15] VITALS: BP 111/74
[2024-12-31 11:29] LABS: Hematocrit 38.5 % (39.0-52.0); Hemoglobin 13.2 g/dL (13.0-18.0); Mean Corp Hgb Conc. 34.3 g/dL (33.0-37.0); Mean Corpuscular Volume 87.5 fL (80.0-94.0); Mean Platelet Volume 10.7 fL (7.4-10.4); Platelet Count 144 10^3/uL (130-400); Red Cell Dist. Width 12.7 % (11.5-14.5); White Blood Cell Count 6.5 10^3/uL (4.8-10.8)
--- NOTE | 2024-12-31 11:29 | CM ---
Patient seen at bedside with . Patient states he is for discharge home with no needs anticipated. CM will continue to follow for discharge planning needs.
Plan; home with no needs anticipated
[2024-12-31 11:49] LABS: Glucose - Point of Care 224 mg/dl (70-99)
--- NOTE | 2024-12-31 11:52 | W.PN.HOSP.TC ---
Today's Communication/Plan
-
d/c home
Assessment / Plan
Assessment / Plan
1. Acute calculous cholecystitis
Hyperbilirubinemia -direct dominant
Acute transaminitis
- MRI MRCP did not show any choledocholithiasis
- Patient evaluated by general surgery, maybe patient passed a small stone ?
- Patient is planned to get elective cholecystectomy by general surgery
- Intraoperative findings showing patient having necrotic/suppurative calculus cholecystitis
- Status post lap cholecystectomy on 12/30
- General Surgery recommended patient to finish 7-day course of oral Augmentin therapy
2. Elevated Lipase
- Possibly due to passed gallstone situation
- Currently no abdominal pain/nausea/vomiting, continue monitoring
3. Type II DM
- maintain on ISS
4. Essential HTN
- continue on valsartan
5. Depression/anxiety
- Maintain on zoloft 100mg/d
DVT PPX - scd
Full code
More than 30 minutes spent in discharge including
Final examination of the patient
Summarizing hospital stay
Instructions for continuing care to all relevant caregivers
Preparation of discharge records, prescriptions, and referral forms
Total time spent (in minutes): 39 mins
Anticipated Discharge: Today
Subjective/Interval History
-
Date of Service: December 31, 2024
resting comfortably in bed
denies of having any abd pain/nausea/vomiting
no other issues
Objective Data
-
Labs:
Laboratory Results
12/31/24 12/31/24
06:34 06:35
WBC 6.5
Hgb 13.2
Hct 38.5 L
Plt Count 144
Sodium 136
Potassium 3.9
Chloride 102
Carbon Dioxide 24
BUN 19
Creatinine 1.1
Glucose 197 H
Calcium 8.4
Total Bilirubin 3.1 H
AST 119 H
ALT 251 H
Alkaline Phosphatase 68
Vital Signs:
Vital Signs
Temp Pulse Resp BP Pulse Ox
98.3 F 97 14 106/75 94
12/31/24 07:45 12/31/24 07:45 12/31/24 07:45 12/31/24 07:45 12/31/24 08:45
I&O
12/30/24 12/31/24 01/01/25
06:59 06:59 06:59
Intake Total 2400 / 2400 410 / 410
Balance 2400 / 2400 410 / 410
Review of Systems
-
Respiratory: Reports No Symptoms
Cardiac: Reports No Symptoms
Abdomen/GI: Reports No Symptoms
Physical Exam
-
General: Negative Appears in Distress
HEENT: Negative Oxygen
Neuro: Awake, Alert, Oriented and No Motor Deficits
[2024-12-31] MEDS: NOVOLOG FLEXPEN-LOW RESISTANCE 2 UNITS SC (12:09)
[2024-12-31] MEDS: DIOVAN PO (12:10)
[2024-12-31 13:07] VITALS: BP 115/74
--- NOTE | 2024-12-31 13:09 | PTCARENOTE ---
Educated pt and on discharge packet. No questions at this time. to transport home. IV removed.
--- NOTE | 2024-12-31 14:26 | W.DCSUMMARY ---
Discharge Summary
Discharge Data
Date of Admission: 12/30/24
Date of Discharge: 12/31/24
-
Pending Results: No
Hospital Course
Discharging Physician : Dr Iker Levine
Disposition : To home
Primary care physician : Dr Roosevelt Covington
Principal Discharge diagnosis :
Acute calculus suppurative cholecystitis
Hyperbilirubinemia
Acute transaminitis
Gallstone pancreatitis
Chronic Discharge diagnosis :
Type 2 diabetes mellitus
Essential hypertension
Depression/anxiety
Hospital Course :
Patient is a 59-year-old male with no mentioned past medical history came to ER with new onset of intrascapular back pain which later started radiating to abdomen. Patient had nausea and episode of vomiting with some shaking chills. In ER lab
evaluation showing patient having transaminitis and elevated total bilirubin. Lipase was elevated to 1900 as well. Clinically there was concern of patient having gallstone pancreatitis based on liver and abdominal ultrasound finding. GI was
involved in care and advised patient to be maintained on antibiotic as patient with further worsening of liver enzymes there was concern of choledocholithiasis. An MRI MRCP was done which ruled out this possibility. General surgery was involved in
care for evaluation and after discussion with patient, patient was taken for an elective laparoscopic cholecystectomy. Intraoperatively patient was found to having necrotic/suppurative calculus cholecystitis. Postprocedure patient had improvement
of transaminitis. General surgery recommended for patient to be discharged on 7 days of Augmentin therapy. Patient will discharge home at this point.
Important imaging findings :
None
Procedure findings :
None
Discharge Plan
-
Patient Disposition: Home (Routine Discharge)
Discharge Diagnosis/Procedures: Robotic cholecystectomy with cholangiogram for acute calculous cholecystitis
Condition: Fair
Diet: No restrictions
Activity: No strenuous activity
Driving Restrictions: No driving for 24 hours
Bathing Restrictions: OK to Shower
Wound Care: Allow skin glue to flake off on its own
Instructions: Cholecystectomy - Discharge instructions
Referrals:
Roosevelt Covington MD [Family Provider] - in one week
Blayne Koch MD [Active] - (follow up with GI with recent pancreatitis and note fatty liver on imaging. Call [phone] to arrange 3-4 week follow up)
Shiv Martino MD [Active] - in two to four weeks
Additional Discharge Medication Instructions: Take ibuprofen 800mg 4x daily with food for the next few days up to 1 week for pain. If you get pain in between doses take 1000mg tylenol (max 4x daily). Use ice packs and/or heating pads. If this is not
enough take tramadol 1-2 tabs.
Prescriptions:
New
amoxicillin-pot clavulanate 875-125 mg tablet
1 tab PO Q12 Qty: 7 0RF
tramadol 50 mg tablet
50 - 100 mg PO Q6H PRN (Reason: Pain) Qty: 20 0RF
Continued
ibuprofen 200 MG tablet
800 mg PO Q6HPRN PRN (Reason: mild pain)
valsartan 40 MG tablet
40 mg PO DAILY
sertraline 100 mg Tablet
100 mg PO HS
metformin 500 mg Tablet Extended Release 24 Hr
1,000 mg PO BID
Discharge Orders:
Discharge Patient (As Directed); Ordered 12/31/24
Ordered By: Iker Levine
Discharge Date and Time
Discharge Date/Time: 12/31/24 13:44
Print Language: MAORI
== END 2024-12-31 13:44 | disposition home or self-care (01) | DRG 417 ==
LOC: 2 SOUTH 10:42
PROVIDERS: Emergency Medicine; Nurse Practitioner Adult Health; ADMITTING PHYSICIAN Internal Medicine; ATTENDING PHYSICIAN Hospitalist; CONSULT PHYSICIAN Internal Medicine Gastroenterology; EMERGENCY PHYSICIAN Student in an Organized Health Care Education/Training Program; FAMILY PHYSICIAN Family Medicine; OTHER PHYSICIAN Surgery
PROC: BF141ZZ Fluoroscopy of Gallbladder, Bile Ducts and Pancreatic Ducts using Low Osmolar Contrast (ICD-10-PCS; 2024-12-30)
PROC: 0FT44ZZ Resection of Gallbladder, Percutaneous Endoscopic Approach (ICD-10-PCS; 2024-12-30)
DX: K80.00 Calculus of gallbladder with acute cholecystitis without obstruction (principal); K85.10 Biliary acute pancreatitis without necrosis or infection; E11.9 Type 2 diabetes mellitus without complications; I10 Essential (primary) hypertension; K63.5 Polyp of colon; K21.9 Gastro-esophageal reflux disease without esophagitis; F43.10 Post-traumatic stress disorder, unspecified; F41.9 Anxiety disorder, unspecified; F32.A Depression, unspecified; Z86.73 Personal history of transient ischemic attack (TIA), and cerebral infarction without residual deficits; Z87.891 Personal history of nicotine dependence
CPT/HCPCS: 88304; 74177; 74183; 74300; 76000; 76705; 80053; 82248; 82962; 83690; 83735; 84484; 85025; 85027; 85379; 85610; 87040; 93005; 99285; A4300; A9575; Q9967